=== PATIENT | male | born 1935 | race Caucasian/White ===

== ENCOUNTER 2016-09-26 05:55 | Inpatient (IN) | payer MEDICARE, OTHER ==
[2016-09-26 06:25] LABS: INR 2.52; PROTHROMBIN TIME 27.8 SECONDS (9.3-11.4)
[2016-09-26 06:28] LABS: BASO # 0.1 K/mm3 (0.0-0.2); BASO % 1.7 % (0.2-1.0); EOS # 0.4 (0.0-0.5); EOS % 5.9 % (0.9-2.9); HEMOGLOBIN 12.7 gm/l (14.0-18.0); IMM NEUT # 0.1 K/mm3 (0-0.2); IMM NEUT% 0.8 % (0-1); LYMPH % 32.8 % (15-45); MEAN CELL VOLUME 93.2 fl (80.0-94.0); MEAN CORPUSCULAR HEMOGLOBIN 29.6 pg (27.0-31.0); MEAN CORPUSCULAR HGB CONC 31.8 g/dl (33.0-37.0); MEAN PLATELET VOLUME 10.3 fl (7.4-10.4); MONO # 0.5 (0.0-0.8); MONO % 8.9 % (4-12); NEUT % 49.9 % (43-75); PLATELET COUNT 184 K/mm3 (130-400); RED CELL DISTRIBUTION WIDTH 14.2 % (11.5-14.5)
[2016-09-26 06:30] LABS: ALB/GLOB RATIO 1.2 (>1.0); ALBUMIN 3.5 gm/dL (3.5-5.7)
--- NOTE | 2016-09-26 07:38 | CT ---
HEAD W/O CON, C-SPINE W/O CON: 09/26/2016 6:28 AM CLINICAL HISTORY: Fall this morning. Patient is on Coumadin. Initial encounter. COMPARISON: None. TECHNIQUE: Contiguous axial 5 mm images from skull base to the vertex were obtained without IV contrast. Sagittal and coronal reformations with bone algorithm images were also obtained at this time. CT DI:: 51.7 DLP: 980.3 FINDINGS: Infarct: None Extra axial spaces: Normal in size and morphology for the patient's age. Hemorrhage: None. Ventricular system: Normal in size and morphology for the patient's age. Basal cisterns: Normal. Cerebral parenchyma: Small vessel occlusive changes are noted in the periventricular white matter. Basal ganglia calcifications are noted on right. Midline shift: None. Cerebellum: Normal. Brainstem: Normal. OTHER: Calvarium: Normal. Vascular system: Normal. Visualized Paranasal sinuses and Mastoid air cells: Chronic sinusitis changes are noted within the left maxillary sinus.. Visualized Orbits and regional soft tissues: Normal. IMPRESSION: No acute intracranial process. Sinus disease as above. Small vessel occlusive change. Indications: Patient fell. Initial encounter. Comparisons: None Technique: Contiguous axial 2 mm images of the cervical spine are obtained without IV contrast. Sagittal and coronal reformations are also obtained at this time. CT DI: 10.0 DLP: 187.1 Findings: Alignment: Normal Prevertebral Soft Tissue Swelling: None Bones: No fracture or dislocation Degenerative Changes: Multilevel facet disease is present. Moderate loss of the intervertebral disc height is also noted at multiple levels. Uncovertebral joint disease is also present. Regional Soft tissues and Lung Apices: Normal Impression: Degenerative changes without fracture or dislocation. Preliminary report was provided by [employer] at approximately 0720 hours on 09/26/2016.
--- NOTE | 2016-09-26 07:44 | RAD ---
09/26/2016 7:34 AM CHEST - 1 VIEW History: Patient fell. Initial encounter. Comparison: None Findings: Single AP view of the chest is obtained. The lungs are clear with out effusion or pneumothorax. The cardiomediastinal silhouette enlarged. The osseous structures are intact.. IMPRESSION: Cardiomegaly without acute process. Correlation with any outside imaging would be helpful to determine the stability of the cardiomegaly.
--- NOTE | 2016-09-26 07:46 | RAD ---
HISTORY: Patient fell. Initial encounter. COMPARISONS: None FINDINGS: AP pelvis with AP and crosstable lateral views of the right hip are obtained. Bones: Simple transverse intertrochanteric fracture is present with minimal displacement. Severe diffuse osteopenia limits assessment. No other definite fracture or dislocation. Joints:Joint spaces are well-preserved. Soft tissue: Multiple fluids are noted in the pelvis. Other: Nonspecific bowel gas pattern overlays the osseous structures.. IMPRESSION: Right hip intertrochanteric fracture.
[2016-09-26] MEDS ORDERED: ONDANSETRON 4 MG/2ML 2 ML VIAL ONE (08:13)
[2016-09-26] MEDS ORDERED: HYDROMORPHONE HCL 1 MG/ML SYRINGE ONE (08:13)
[2016-09-26 08:20] LABS: SPECIFIC GRAVITY 1.015 (1.001-1.030); URINE BILIRUBIN NEGATIVE (NEGATIVE); URINE BLOOD NEGATIVE (NEGATIVE); URINE GLUCOSE (UA) NEGATIVE (NEGATIVE); URINE LEUKOCYTE ESTERASE NEGATIVE (NEGATIVE); URINE NITRITE NEGATIVE (NEGATIVE); URINE PROTEIN NEGATIVE (NEGATIVE); URINE UROBILINOGEN NORMAL (0-1 mg/dl)
[2016-09-26 08:24] LABS: URINE APPEARANCE CLEAR; URINE COLOR YELLOW
[2016-09-26 09:20] VITALS: BMI 27.1
[2016-09-26] MEDS ORDERED: BISACODYL 5 MG TABLET.EC PO PRN (10:29)
[2016-09-26] MEDS ORDERED: BLISTEX LIPSTICK 1 EACH TP PRN (10:29)
[2016-09-26] MEDS ORDERED: MENTHOL/CETYLPYRD 1 EACH LOZENGE PO PRN (10:29)
[2016-09-26] MEDS ORDERED: BISACODYL 10 MG SUP PR PRN (10:29)
[2016-09-26] MEDS ORDERED: MAGNESIUM HYDROXIDE 30 ML UDCUP PO PRN (10:29)
[2016-09-26] MEDS ORDERED: SODIUM CHLORIDE 0.9% 100 ML IV PRN (10:29)
[2016-09-26] MEDS ORDERED: ONDANSETRON 4 MG/2ML 2 ML VIAL IV PRN (10:33)
[2016-09-26] MEDS ORDERED: SUCROSE PO ONE ×2 (10:33)
[2016-09-26] MEDS ORDERED: PHYTONADIONE ADULT PO ONE ×2 (10:33)
--- NOTE | 2016-09-26 14:01 | HP ---
SPUURJAKOB [id number] ADMIT DATE: 09/26/2016 CHIEF COMPLAINT: Hip fracture. HISTORY OF PRESENT ILLNESS: Jakob is an 81-year-old male with underlying atrial fibrillation on Coumadin as well as Lewy body dementia. He was at home this morning, and got up to go to the bathroom around 4:45 a.m.. He slipped on the floor and fell. He did not hit his head, did not lose consciousness. He had immediate pain in the hip. His was there and found him, and called 911. Brought to the emergency room and found to have a right sided intratrochanteric hip fracture. Otherwise, had no other injuries. He was admitted to the Hospitalist service to facilitate medical clearance, and to facilitate orthopedic consult. REVIEW OF SYSTEMS: HEENT: No headache, no visual symptoms and no difficulty swallowing. Pulmonary: No shortness of breath. Cardiac: No chest pain. No heart palpitations. Gastrointestinal: No nausea, vomiting or diarrhea. No change in bowel, or bladder habits. Extremities: No lower extremity weakness, numbness, tingling, or swelling. PAST MEDICAL HISTORY: 1. Atrial fibrillation on Coumadin. 2. Hypothyroidism. 3. Lewy body dementia mild as per his . 4. History of migraine headaches. 5. Macular degeneration. PAST SURGICAL HISTORY: Hemorrhoid surgery in the distant past. ALLERGIES: CODEINE. CURRENT MEDICATIONS: 1. Calcium carbonate 650 by mouth three times a day. 2. Dorzolamide eye drops twice a day. 3. Xalatan eye drops every p.m. 4. Vitamin B2 at 1000 units by mouth every day. 5. Quetiapine 12.5 mg by mouth every p.m. 6. Levothyroxine 175 mcg by mouth every morning. 7. Coumadin as directed. 8. Refresh eye drops as needed. 9. Sumatriptan as needed. SOCIAL HISTORY: He lives in [place] with his . He has a son and [id number] who live nearby in [place]. He is retired from the insurance industry. No alcohol, tobacco, or drug use. FAMILY HISTORY: Noncontributory. PHYSICAL EXAMINATION: VITAL SIGNS: Temperature is 97.4. Pulse is 84. Blood pressure is 92/65. Respirations is 20. O2 sat is 95% on room air. GENERAL: This is a well-developed and well-nourished adult male. He is alert, and pleasant. Very talkative. No acute distress. HEENT: Normocephalic, atraumatic. Tympanic membranes are clear. Extraocular muscles intact. Oropharynx is moist. NECK: Supple. LUNGS: Clear. HEART: Irregular, but no murmurs. ABDOMEN: Soft. EXTREMITIES: He is neurovascularly intact with no edema. Right lower extremity is externally rotated and shortened. LABS: CBC with a white count of 6, hemoglobin 12.7, hematocrit 40, and platelets of 184. Chemistry panel: Sodium 138, potassium 3.9, chloride 105, carbon dioxide 28, BUN of 22, creatinine 1.1, and glucose of 115. INR is therapeutic at 2.52. Urinalysis is clear. DIAGNOSTIC IMAGING: Electrocardiogram shows atrial fibrillation. No acute ST or T-wave abnormalities. Head and neck CT performed in the emergency room with no acute findings. Chest x-ray shows cardiomegaly, but no other evidence of congestive heart failure. ASSESSMENT: 1. Right intratrochanteric hip fracture secondary to a ground level fall. 2. Atrial fibrillation at baseline, appears to be chronic. 3. Anticoagulation with Coumadin with therapeutic INR. 4. Hypothyroidism, stable. 5. Lewy body dementia, appears to be at baseline. PLAN: Admitted to floor. We will treat him supportively here today. We will reverse his Coumadin using vitamin K. I anticipate we will be able to get him reversed, and possibly cleared for surgery by tomorrow. We will continue his other regular medications. Supportive care otherwise with as needed medication for pain and nausea. Deep venous thrombosis prophylaxis is not indicated as the patient is therapeutic on Coumadin. TRINO/allen Cc: GUY
[2016-09-26] MEDS: HYDROMORPHONE HCL 1 MG/ML SYRINGE IV PRN ×4 (14:07→23:30)
[2016-09-26] MEDS: LATANOPROST 0.005% 50 GTTS/2.5 ML BOT SOLN.DROP OU SCH (19:44)
[2016-09-26] MEDS: ACETAMINOPHEN 325 MG TABLET PO PRN (19:45)
[2016-09-26] MEDS: QUETIAPINE FUMARATE 25 MG TABLET PO SCH (19:45)
[2016-09-26] MEDS: DORZOLAMIDE 2% 200 GTTS/10 ML BOT SOLN.DROP OU SCH (20:41)
[2016-09-26] MEDS: DOCUSATE SODIUM 100 MG CAPSULE PO SCH (20:43)
[2016-09-26] MEDS ORDERED: PUMP TUBING ONE (22:42)
[2016-09-26] MEDS: SODIUM CHLORIDE 0.9% 1,000 ML IV SCH (22:48)
[2016-09-27] MEDS: HYDROMORPHONE HCL 1 MG/ML SYRINGE IV PRN (05:26)
[2016-09-27 05:51] LABS: ABSOLUTE NEUTROPHIL COUNT 5.4 K/mm3 (1.8-7.7); BASO # 0.1 K/mm3 (0.0-0.2); BASO % 0.6 % (0.2-1.0); EOS # 0.1 (0.0-0.5); EOS % 0.6 % (0.9-2.9); HEMATOCRIT 33.8 % (32.0-52.0); HEMOGLOBIN 11.1 gm/l (14.0-18.0); IMM NEUT% 0.2 % (0-1); LYMPH # 1.5 (1.0-4.8); LYMPH % 17.6 % (15-45); MEAN CELL VOLUME 93.9 fl (80.0-94.0); MEAN CORPUSCULAR HEMOGLOBIN 30.8 pg (27.0-31.0); MEAN CORPUSCULAR HGB CONC 32.8 g/dl (33.0-37.0); MEAN PLATELET VOLUME 10.3 fl (7.4-10.4); MONO # 1.3 (0.0-0.8); MONO % 15.8 % (4-12); NEUT % 65.2 % (43-75); PLATELET COUNT 122 K/mm3 (130-400); RED CELL DISTRIBUTION WIDTH 14.2 % (11.5-14.5)
[2016-09-27 05:56] LABS: INR 1.4
[2016-09-27 06:05] LABS: CALCIUM 8.5 mg/dL (8.6-10.3)
[2016-09-27] MEDS: SODIUM CHLORIDE 0.9% 1,000 ML IV SCH ×3 (06:40→22:01)
--- NOTE | 2016-09-27 07:24 | PDOC43 ---
- Subjective Subjective: Reports Pain Tolerable, Denies Chest Pain, Denies Shortness of Breath, Denies Nausea, Denies Vomiting - Objective Vital Signs Temperature 98.3 F 09/27/16 02:39 Pulse Rate 95 09/27/16 02:39 Respiratory Rate 16 09/27/16 02:39 Blood Pressure 100/49 09/27/16 02:39 O2 Saturation by Pulse Oximetry 94 09/27/16 02:39 Oxygen Delivery Method Room Air Oxygen Flow Rate 0 Laboratory 09/27/16 05:15 09/27/16 05:15 09/27/16 05:15 RBC 3.60 L MCHC 32.8 L PT 15.0 H Estimated GFR 58 L Calcium 8.5 L Active Medication Orders Category Date Time Status Acetaminophen [Tylenol] Med 09/26/16 10:29 Active 650 mg PO Q6H PRN Bisacodyl [Dulcolax] Med 09/26/16 10:29 Active 10 mg SC DAILY PRN Bisacodyl [Dulcolax] Med 09/26/16 10:29 Active 5 mg PO DAILY PRN Docusate Sodium [Colace] Med 09/26/16 21:00 Active 100 mg PO BID Dorzolamide 2% [Trusopt 2% Ophth Soln] Med 09/26/16 21:00 Active 0 gtts OU BID Hydromorphone HCl [Dilaudid] Med 09/26/16 10:33 Active 1 - 2 mg IV Q2H PRN Latanoprost 0.005% [Xalatan] Med 09/26/16 20:00 Active 0 gtts OU QPM Levothyroxine Sodium [Levothroid] Med 09/27/16 07:30 Active 175 mcg PO QAMAC Lip [place] [Blistex] Med 09/26/16 10:29 Active 1 each TP PRN PRN Magnesium Hydroxide [Milk of Magnesia] Med 09/26/16 10:29 Active 30 ml PO DAILY PRN Menthol/Cetylpyridinium [Cepacol] Med 09/26/16 10:29 Active 1 each PO PRN PRN Ondansetron 4 mg/2ml Vial [Zofran] Med 09/26/16 10:33 Active 4 mg IV Q3H PRN Quetiapine Fumarate [Seroquel] Med 09/26/16 20:00 Active 12.5 mg PO QPM Sodium Chloride 0.9% 1,000 ml Med 09/26/16 22:30 Active IV 125 mls/hr Sodium Chloride 0.9% 100 ml Med 09/26/16 10:29 Active IV PRN Sodium Chloride 0.9% Flush [Normal Saline 10ml Flush] Med 09/26/16 10:29 Active 10 - 50 ml IV PRN PRN Intake and Output 09/26/16 09/27/16 09/28/16 06:59 06:59 06:59 Intake Total 1135 Output Total 1025 Balance 110 General: Afebrile, No Acute Distress Neurological: Grossly Intact Psych/Mental Status: Normal Affect, Normal Mood Peripheral Pulses: Right Posterior Tibialis: 3+/4+, Right Dorsalis Pedis: 3+/4+ - Right Lower Extremity Motor: Extensor Hallucis Longus: 5/5, Tibialis Anterior: 5/5 Gross Sensation to Light Touch: Present: Medial Plantar Nerve, Lateral Plantar Nerve, Sural Nerve, Saphenous Nerve Capillary Refill: < 3 Seconds - Disposition INR 1.4; spoke with Dr. Buckner and have asked him to take over pt.'s care. Dr. Olmedo feels patient is ready for surgery. Spoke with patient's ; she is aware of transfer of care to Dr. Buckner.
[2016-09-27] MEDS: DOCUSATE SODIUM 100 MG CAPSULE PO SCH (08:37)
[2016-09-27] MEDS: LEVOTHYROXINE SODIUM 175 MCG TABLET PO SCH (08:37)
--- NOTE | 2016-09-27 08:56 | CONS ---
JAKOB CHAPIN [id number] DATE OF CONSULTATION: September 26, 2016 HISTORY OF PRESENT ILLNESS: Jakob Chapin is an 81-year-old male who was seen at the request of the emergency department physician, Dr. Marsh, for evaluation of a right intertrochanteric hip fracture. Patient was examined with his permission in his bed in the presence of his and [id number]. The imaging studies and medical records are reviewed. HISTORY OF INJURY: Patient states that he got up this morning to go to the bathroom. He slipped on the bathroom floor at home and fell to the ground. He was unable to arise. He felt that he was certain he had broken his hip. His contacted paramedics, and he was then transported to [facility] where he was evaluated in the emergency department by Dr. Marsh who obtained x-rays, diagnosed an intertrochanteric fracture of the right hip and subsequently contacted me for orthopedic consultation. He also contacted the hospitalist service for admission and evaluation. He is interviewed in his room. He is experiencing right hip pain. He is alert. He states he is somewhat forgetful and is hard of hearing. History is obtained from the patient and from his . PAST MEDICAL HISTORY: 1. Cardiac arrhythmia. 2. Atrial fibrillation. 3. Hypothyroidism. 4. Hypertension. 5. Glaucoma. PAST SURGICAL HISTORY: He denies any prior surgeries. ALLERGIES: HE HAD NO KNOWN DRUG ALLERGIES. MEDICATIONS: He is taking multiple medications. 1. He is taking Timoptic for his glaucoma. 2. He is also taking Synthroid. 3. He is on Coumadin for his atrial fibrillation. 4. He is on some other medications whose names he does not recall. SOCIAL HISTORY: He does not smoke. He drinks alcohol very rarely. He is a retired insurance operations rep. PHYSICAL EXAM: GENERAL: Physical examination reveals a well-nourished, well-developed male who is cooperative with the examination. VITAL SIGNS: Patient gives a stated height of about 5 feet 7.5 inches tall and weighs 170 pounds. EXTREMITIES: Focused examination of the right lower extremity is carried out. Inspection of the lower extremities indicates shortening and external rotation of the right leg. The neurovascular status is intact. He has good peripheral pulses and posterior tibialis and dorsalis pedis. He has good capillary refill and good sensation. There is exquisite right hip pain upon movement of the right lower extremity. IMAGING STUDIES: X-rays obtained while the patient was in the emergency department of the right hip and pelvis indicated the presence of an intertrochanteric fracture of the right hip. DIAGNOSTIC IMPRESSION: 1. Intertrochanteric fracture right hip. 2. Atrial fibrillation. 3. Hypothyroidism. 4. Glaucoma. PLAN: Patient is a candidate for surgical treatment. Surgery itself has been explained to the patient and to his family in detail along with expected benefits, potential risks and complications and alternative method of treatment. PARQ conference was held. Patient and family appear to understand. They request that we proceed with the surgery. Patient will be evaluated by Dr. Olmeod, hospitalist, for preoperative consultation. Dr. Olmedo has spoken with us. He feels that the patient has elevated INR of 2.4 and will begin the process of reversing it with vitamin K. He feels the patient should be a candidate for surgical treatment by tomorrow. He is recommending surgery today. We have conferred with the patient's family. They are comfortable with this decision. In the meantime, patient will be maintained at bedrest with pain medication and we will place compression stockings on his legs while he is at bedrest.
[2016-09-27] MEDS ORDERED: LATANOPROST 0.005% 50 GTTS/2.5 ML BOT SOLN.DROP OU SCH (10:30)
[2016-09-27] MEDS: DORZOLAMIDE 2% 200 GTTS/10 ML BOT SOLN.DROP OU SCH (10:33)
--- NOTE | 2016-09-27 11:18 | PDOC43 ---
- Subjective Chief Complaint: Hip fx Patient resting, awakens normally. At ease, no complaints, just some soreness at R hip. No respiratory, no GI c/o. - Objective Vital Signs Temperature 98.4 F 09/27/16 09:27 Pulse Rate 123 09/27/16 09:27 Respiratory Rate 13 09/27/16 09:27 Blood Pressure 114/57 09/27/16 09:27 O2 Saturation by Pulse Oximetry 93 09/27/16 09:27 Oxygen Delivery Method Room Air Oxygen Flow Rate 0 Vital Signs Last 12 Hours Temp Pulse Resp BP Pulse Ox 09/27/16 09:27 98.4 F 123 13 114/57 93 09/27/16 09:08 13 09/27/16 02:39 98.3 F 95 16 100/49 94 Intake and Output 09/25/16 09/26/16 09/27/16 23:59 23:59 23:59 Intake Total 120 1015 Output Total 850 175 Balance -730 840 General: Alert, No Oriented x3 (Guesses September or October for date, but not able to give more detail, like a year.), No Acute Distress HEENT: Atraumatic Lungs: Normal Air Movement Cardiovascular: Irregular (sl rapid) Abdomen: Soft, Normal Bowel Sounds, Non-Distended, No Tenderness, No Rebounding Extremities: Other (R LE externally rotated, shortened, c/w hip fx. Perfusion appears good. ICDs on) Skin: Normal Color Neurological: Normal Speech Psych/Mental Status: Normal Affect, Normal Mood Laboratory 09/27/16 05:15 09/27/16 05:15 09/27/16 05:15 RBC 3.60 L MCHC 32.8 L PT 15.0 H Estimated GFR 58 L Calcium 8.5 L Laboratory Tests 09/26/16 09/27/16 06:02 05:15 INR 2.52 1.40 Current Medications: Current meds reviewed in EMR. Active Medications Acetaminophen (Tylenol) 650 mg PO Q6H PRN PRN Reason: Pain or Temperature > 100.5 F Last Admin: 09/26/16 19:45 Dose: 650 mg Benzocaine/Menthol (Cepacol) 1 each PO PRN PRN PRN Reason: Sore Throat Last Admin: 09/26/16 19:45 Dose: 1 each Bisacodyl (Dulcolax) 10 mg PA DAILY PRN PRN Reason: Constipation Bisacodyl (Dulcolax) 5 mg PO DAILY PRN PRN Reason: Constipation Docusate Sodium (Colace) 100 mg PO BID [facility] Last Admin: 09/27/16 08:37 Dose: Not Given Dorzolamide HCl (Trusopt 2% Ophth Soln) 0 gtts OU BID [facility] Last Admin: 09/27/16 10:33 Dose: 1 gtts Hydromorphone HCl (Dilaudid) 1 - 2 mg IV Q2H PRN PRN Reason: Pain Last Admin: 09/27/16 05:26 Dose: 1 mg Sodium Chloride (Sodium Chloride 0.9%) 100 mls @ 25 mls/hr IV PRN PRN PRN Reason: Flush Sodium Chloride (Sodium Chloride 0.9%) 1,000 mls @ 125 mls/hr IV .Q8H [facility] Last Admin: 09/27/16 06:40 Dose: 125 mls/hr Latanoprost (Xalatan) 0 gtts OU QPM [facility] Last Admin: 09/26/16 19:44 Dose: 1 gtts Levothyroxine Sodium (Levothroid) 175 mcg PO QAMAC [facility] Last Admin: 09/27/16 08:37 Dose: Not Given Magnesium Hydroxide (Milk Of Magnesia) 30 ml PO DAILY PRN PRN Reason: Constipation Ondansetron HCl (Zofran) 4 mg IV Q3H PRN PRN Reason: Nausea/Vomiting Petrolatum/Paraffin/Mineral Oil (Blistex) 1 each TP PRN PRN PRN Reason: Dry and/or chapped lips Last Admin: 09/26/16 19:44 Dose: 1 applic Quetiapine Fumarate (Seroquel) 12.5 mg PO QPM [facility] Last Admin: 09/26/16 19:45 Dose: 12.5 mg Sodium Chloride (Normal Saline 10ml Flush) 10 - 50 ml IV PRN PRN PRN Reason: IV Flush Last Admin: 09/27/16 06:14 Dose: 10 ml Sodium Chloride (Normal Saline 10ml Flush) 10 ml IV Q8HR [facility] Last Admin: 09/27/16 09:04 Dose: Not Given - Problems: Assessment/Plan (1) Hip fracture Qualifiers: Encounter type: initial encounter Fracture type: closed Laterality : right Qualifier Code: (S72.001A) Fracture of unspecified part of neck of right femur, initial encounter for closed fracture Status: AcuteAssessment/ Plan: Anticipate surgical repair today. (2) Atrial fibrillation Qualifiers: Atrial fibrillation type: chronic Qualifier Code: (I48.2) Chronic atrial fibrillation Status: ChronicAssessment/Plan: INR <1.5 now after Vit K. Had been on warfarin. HR up some, due to atrial fib. Not normally on rate limiting drug, but would consider metoprolol if HR continues high. Pt appears to be tolerating tachycardia due to chronic atrial fib without difficulty. (3) Lewy body dementia Qualifiers: Dementia behavioral disturbance: without behavioral disturbance Qualifier Code: (G31.83) Dementia with Lewy bodies Status: AcuteAssessment/ Plan: Has Seroquel ordered. appears to be tolerating well. VTE Prophylaxis: Mechanical in anticipation of surgical repair Disposition: To be determined, will see about activity tolerance postop, appreciate therapy input.
[2016-09-27] MEDS ORDERED: KETAMINE HCL UD SYRINGE 100 MG/2 ML IV ONE (15:21)
[2016-09-27] MEDS ORDERED: MIDAZOLAM HCL 1 MG/ML 2ML VIAL ONE (15:21)
[2016-09-27] MEDS ORDERED: SPINAL PROCEDURAL TRAY 1 EACH ONE (15:32)
[2016-09-27] MEDS ORDERED: BUPIVACAINE 0.5% (PRES FREE) 30 ML VIAL ONE (15:32)
[2016-09-27] MEDS ORDERED: FENTANYL 100 MCG/2 ML VIAL ONE (16:15)
[2016-09-27] MEDS ORDERED: CEFAZOLIN SODIUM 1,000 MG VIAL ONE (16:39)
[2016-09-27] MEDS ORDERED: PHENYLEPHRINE 10 MG/1 ML (1%) VIAL ONE (16:39)
[2016-09-27] MEDS ORDERED: HYDROMORPHONE HCL 1 MG/ML SYRINGE IV PRN (16:44)
[2016-09-27] MEDS ORDERED: NALOXONE HCL 0.4 MG/ML VIAL IV PRN (16:44)
[2016-09-27] MEDS ORDERED: ONDANSETRON 4 MG/2ML 2 ML VIAL IV PRN (16:44)
[2016-09-27] MEDS ORDERED: ATROPINE SULFATE 0.4 MG/1 ML VIAL IV PRN (16:44)
[2016-09-27] MEDS ORDERED: FENTANYL 100 MCG/2 ML VIAL IV PRN (16:44)
[2016-09-27] MEDS ORDERED: LACTATED RINGERS 1,000 ML IV SCH (16:45)
[2016-09-27] MEDS ORDERED: LIDOCAINE 2% (PRES FREE) 5 ML VIAL ONE (16:51)
[2016-09-27] MEDS ORDERED: PROPOFOL 40 ML IV ONE (16:51)
--- NOTE | 2016-09-27 17:29 | PCMBPN ---
Brief Post Op Note: Date of Procedure: 09/27/16 Start Time: 1600 Preoperative Diagnosis: 1. right intertrochanteric hip fracture Postoperative Diagnosis: 1. Same Procedure: right hip ORIF Surgeon: Manuel Buckner MD Assist: Christy Castillo Anesthesia: Miguelito Bolden Findings: as above Condition: stable to PACU Complications: none IV Fluids: 1500 mLs of LR Urine Output: 150 mLs Estimated Blood Loss: 150 mLs Tourniquet Time: none Specimens: none Implants: 135 deg AO screw/sideplate, 120 mm screw, 4 shaft screws Drains: none Manuel Buckner MD
--- NOTE | 2016-09-27 18:38 | RAD ---
Name: ANTONIO HAY Exam: Pelvis Comparison: None Clinical history: Follow-up fracture Findings: Low AP pelvis is submitted. Bone density is diminished. Intertrochanteric fracture of the right hip is secured by lateral compression plate and sliding screw. Fracture fragments are in anatomic alignment. Straight catheter is noted in the pelvis. Superior hip joint spaces are maintained. Impression: Normal postoperative single view appearance of ORIF of the proximal right femoral fracture
[2016-09-27] MEDS ORDERED: SODIUM CHLORIDE 0.9% 500 ML IV SCH (19:30)
--- NOTE | 2016-09-27 19:42 | RAD ---
Name: ANTONIO HAY Exam: C-arm fluoroscopy Comparison: Prereduction films dated 10-11 Clinical history: Proximal right femoral fracture Findings: 58.4 seconds of fluoroscopy was utilized for the procedure. 3 C-arm spot images are submitted. The intertrochanteric fracture of the right hip is secured by lateral compression plate and sliding screw. Fracture fragment alignment is normal. There is no new suspicious finding. Impression: Normal intraoperative appearance of ORIF of a proximal right femoral intertrochanteric fracture
[2016-09-27] MEDS: ACETAMINOPHEN 325 MG TABLET PO PRN (19:52)
[2016-09-27] MEDS ORDERED: METOPROLOL TARTRATE 25 MG TABLET PO ONE (20:13)
[2016-09-27] MEDS: QUETIAPINE FUMARATE 25 MG TABLET PO SCH (20:23)
[2016-09-28] MEDS: DOCUSATE SODIUM 100 MG CAPSULE PO SCH ×3 (01:59→20:02)
[2016-09-28] MEDS: METOPROLOL TARTRATE 25 MG TABLET PO SCH ×3 (01:59→20:38)
[2016-09-28] MEDS: DORZOLAMIDE 2% 200 GTTS/10 ML BOT SOLN.DROP OU SCH ×4 (01:59→20:08)
[2016-09-28] MEDS: LATANOPROST 0.005% 50 GTTS/2.5 ML BOT SOLN.DROP OU SCH ×3 (01:59→20:08)
[2016-09-28] MEDS: CEFAZOLIN SODIUM 1 GRAM PREMIX 1 G in Premix (D5W) 50 ml 1 EACH IV SCH ×2 (02:04→07:53)
[2016-09-28] MEDS: HYDROMORPHONE HCL 1 MG/ML SYRINGE IV PRN ×2 (02:23→22:22)
[2016-09-28] MEDS ORDERED: SODIUM CHLORIDE 0.9% 500 ML IV SCH ×2 (03:48→14:00)
[2016-09-28] MEDS: LEVOTHYROXINE SODIUM 175 MCG TABLET PO SCH (07:53)
[2016-09-28] MEDS: ACETAMINOPHEN 325 MG TABLET PO PRN (09:06)
[2016-09-28] MEDS ORDERED: SODIUM CHLORIDE 0.9% FLUSH 10 ML ONE (12:16)
[2016-09-28] MEDS ORDERED: IV START KIT ONE (12:17)
[2016-09-28] MEDS: SODIUM CHLORIDE 0.9% 1,000 ML IV SCH ×3 (13:46→20:02)
[2016-09-28] MEDS ORDERED: WARFARIN PER PHARMACY 1 EACH DOSE PO SCH (14:00)
--- NOTE | 2016-09-28 14:06 | PDOC43 ---
- Subjective Chief Complaint: Rt. Hip fx Subjective: Reports Pain Tolerable, Denies Shortness of Breath, Denies Chest Pain, Denies Fever - Objective Vital Signs Temperature 98.2 F 09/28/16 07:20 Pulse Rate 107 09/28/16 11:51 Respiratory Rate 20 09/28/16 11:51 Blood Pressure 83/53 09/28/16 11:51 O2 Saturation by Pulse Oximetry 98 09/28/16 11:51 Oxygen Delivery Method Room Air Oxygen Flow Rate 0 Intake and Output 09/27/16 09/28/16 09/29/16 06:59 06:59 06:59 Intake Total 1135 2869 2271 Output Total 1025 1275 Balance 110 1594 2271 General: Alert, Cooperative, No Acute Distress HEENT: Mucous membr. moist/pink Lungs: Clear to Auscultation Bilaterally Cardiovascular: Regular Rate and Rhythm Abdomen: Soft, Normal Bowel Sounds, Non-Distended, No Tenderness Extremities: Normal Pulses, No Edema Peripheral Pulses: Dorsalis Pedis (L): 2+, Dorsalis Pedis (R): 2+ Skin: Warm, Dry, Intact Wound: Dressing Clean/Dry/Intact Laboratory 09/27/16 05:15 09/27/16 05:15 Current Medications: Current meds reviewed in EMR. - Problems: Assessment/Plan (1) Hip fracture Qualifiers: Encounter type: initial encounter Fracture type: closed Laterality : right Qualifier Code: (S72.001A) Fracture of unspecified part of neck of right femur, initial encounter for closed fracture Status: AcuteAssessment/ Plan: S/P ORIF of right hip performed on 09/27- [facility] (2) Lewy body dementia Qualifiers: Dementia behavioral disturbance: without behavioral disturbance Qualifier Code: (G31.83) Dementia with Lewy bodies Status: AcuteAssessment/ Plan: Has Seroquel ordered. appears to be tolerating well. (3) Atrial fibrillation Qualifiers: Atrial fibrillation type: chronic Qualifier Code: (I48.2) Chronic atrial fibrillation Status: ChronicAssessment/Plan: INR <1.5 now after Vit K. Had been on warfarin. HR up some, due to atrial fib. Not normally on rate limiting drug, but would consider metoprolol if HR continues high. BP is low with increased heart rate today but per spouse he runs low at baseline. Pt appears to be tolerating tachycardia due to chronic atrial fib without difficulty. ECHO performed on 09/28 shows biatrial enlargement but normal LVEF- Will resume coumadin today and give fluid bolus VTE Prophylaxis: Mechanical prophylaxis and restarting coumadin on 09/28 Disposition: To be determined, will see about activity tolorance postop, appreciate therapy input.
[2016-09-28] MEDS ORDERED: WARFARIN SODIUM 5 MG TABLET PO ONE (16:00)
--- NOTE | 2016-09-28 17:51 | PDOC43 ---
- Subjective Findings: Resting comfortably this AM, per was fairly agitated most of the night. No new issues. Subjective: Reports Pain Tolerable - Objective Vital Signs Temperature 98.2 F 09/28/16 07:20 Pulse Rate 112 09/28/16 15:46 Respiratory Rate 18 09/28/16 15:46 Blood Pressure 124/65 09/28/16 15:46 O2 Saturation by Pulse Oximetry 92 09/28/16 15:46 Oxygen Delivery Method Room Air Oxygen Flow Rate 0 Laboratory 09/27/16 05:15 09/27/16 05:15 Active Medication Orders Category Date Time Status Acetaminophen [Tylenol] Med 09/26/16 10:29 Active 650 mg PO Q6H PRN Bisacodyl [Dulcolax] Med 09/26/16 10:29 Active 10 mg [place] DAILY PRN Bisacodyl [Dulcolax] Med 09/26/16 10:29 Active 5 mg PO DAILY PRN Docusate Sodium [Colace] Med 09/26/16 21:00 Active 100 mg PO BID Dorzolamide 2% [Trusopt 2% Ophth Soln] Med 09/26/16 21:00 Active 0 gtts OU BID Hydromorphone HCl [Dilaudid] Med 09/26/16 10:33 Active 1 - 2 mg IV Q2H PRN Latanoprost 0.005% [Xalatan] Med 09/26/16 20:00 Active 0 gtts OU QPM Levothyroxine Sodium [Levothroid] Med 09/27/16 07:30 Active 175 mcg PO QAMAC Lip [place] [Blistex] Med 09/26/16 10:29 Active 1 each TP PRN PRN Magnesium Hydroxide [Milk of Magnesia] Med 09/26/16 10:29 Active 30 ml PO DAILY PRN Menthol/Cetylpyridinium [Cepacol] Med 09/26/16 10:29 Active 1 each PO PRN PRN Metoprolol Tartrate [Lopressor] Med 09/27/16 21:00 Active 12.5 mg PO BID Ondansetron 4 mg/2ml Vial [Zofran] Med 09/26/16 10:33 Active 4 mg IV Q3H PRN Quetiapine Fumarate [Seroquel] Med 09/26/16 20:00 Active 12.5 mg PO QPM Sodium Chloride 0.9% 1,000 ml Med 09/26/16 22:30 Active IV 125 mls/hr Sodium Chloride 0.9% 100 ml Med 09/26/16 10:29 Active IV PRN Sodium Chloride 0.9% Flush [Normal Saline 10ml Flush] Med 09/26/16 10:29 Active 10 - 50 ml IV PRN PRN Sodium Chloride 0.9% Flush [Normal Saline 10ml Flush] Med 09/27/16 09:00 Active 10 ml IV Q8HR Warfarin Per Pharmacy [Coumadin Per Pharmacy] Med 09/28/16 14:00 Active 1 each PO PERPHARMACY Intake and Output 09/26/16 09/27/16 09/28/16 23:59 23:59 23:59 Intake Total 120 2815 4558 Output Total 850 525 925 Balance -730 2290 3633 General: Afebrile, No Acute Distress Lungs: Normal Air Movement Abdomen: Soft Skin: Normal Color, Warm, Dry - Right Lower Extremity Incision: Dressing Clean/Dry/Intact, Well Approximated, [place] Intact, No Erythema, No Rash, No Ecchymosis Capillary Refill: < 3 Seconds - Problems (1) Hip fracture Qualifiers: Encounter type: initial encounter Fracture type: closed Laterality : right Qualifier Code: (S72.001A) Fracture of unspecified part of neck of right femur, initial encounter for closed fracture Status: Acute - Disposition POD#1 R hip ORIF with sliding hip screw 1. Physical Therapy: WBAT with assistive device at all times. 2. Pain Control: Adequate on current measures, being cautions with narcotics due to hypotension 3. DVT Prophylaxis: Restart Coumadin today 4. Disposition: Likely home tomorrow, has home health in place, completed PT paperwork, 5. Medical Issues: per hospitalist. Manuel Buckner MD
[2016-09-28] MEDS: QUETIAPINE FUMARATE 25 MG TABLET PO SCH (20:02)
--- NOTE | 2016-09-28 22:42 | PDOC36 ---
Provider Note Subject: heart rate up to 140 at times despite metoprolol. Blood pressure low despite fluids and normal LVEF. - Will start digoxin
[2016-09-28] MEDS: DIGOXIN 0.25 MG/ML AMP IV SCH (23:35)
[2016-09-28] MEDS ORDERED: QUETIAPINE FUMARATE 25 MG TABLET PO ONE (23:48)
[2016-09-29] MEDS: SODIUM CHLORIDE 0.9% 1,000 ML IV SCH ×4 (01:59→23:20)
[2016-09-29] MEDS: DIGOXIN 0.25 MG/ML AMP IV SCH ×3 (05:45→16:24)
[2016-09-29 06:11] LABS: ABSOLUTE NEUTROPHIL COUNT 5.7 K/mm3 (1.8-7.7); BASO % 0.4 % (0.2-1.0); EOS # 0.1 (0.0-0.5); EOS % 1.2 % (0.9-2.9); HEMATOCRIT 24.9 % (32.0-52.0); HEMOGLOBIN 7.7 gm/l (14.0-18.0); IMM NEUT% 0.4 % (0-1); LYMPH # 0.9 (1.0-4.8); LYMPH % 11.2 % (15-45); MEAN CELL VOLUME 97.3 fl (80.0-94.0); MEAN CORPUSCULAR HEMOGLOBIN 30.1 pg (27.0-31.0); MEAN CORPUSCULAR HGB CONC 30.9 g/dl (33.0-37.0); MEAN PLATELET VOLUME 10.3 fl (7.4-10.4); MONO # 0.9 (0.0-0.8); MONO % 11.3 % (4-12); NEUT % 75.5 % (43-75); PLATELET COUNT 101 K/mm3 (130-400)
[2016-09-29 06:22] LABS: INR 1.2; PROTHROMBIN TIME 12.7 SECONDS (9.3-11.4)
[2016-09-29 06:30] LABS: CALCIUM 7.8 mg/dL (8.6-10.3)
[2016-09-29] MEDS: LEVOTHYROXINE SODIUM 175 MCG TABLET PO SCH (07:38)
[2016-09-29] MEDS: DOCUSATE SODIUM 100 MG CAPSULE PO SCH ×2 (08:56→20:23)
[2016-09-29] MEDS: ACETAMINOPHEN 325 MG TABLET PO PRN ×2 (08:56→15:58)
[2016-09-29] MEDS: DORZOLAMIDE 2% 200 GTTS/10 ML BOT SOLN.DROP OU SCH ×2 (08:57→20:23)
[2016-09-29] MEDS ORDERED: SODIUM CHLORIDE 0.9% 500 ML IV PRN (11:30)
[2016-09-29] MEDS ORDERED: FUROSEMIDE 20 MG/2 ML VIAL IV ONE (11:30)
--- NOTE | 2016-09-29 11:37 | PDOC43 ---
- Subjective Chief Complaint: Rt. Hip fx Some tachycardia yesterday PM- started dig. At baseline low BP. Weak, but no CP/SOB. Working well with PT/OT. Subjective: Reports Pain Tolerable, Reports Tolerating Diet Well, Denies Shortness of Breath, Denies Cough, Denies Chest Pain, Denies Abdominal Pain, Denies Nausea, Denies Vomiting, Denies Fever, Denies Chills - Objective Vital Signs Temperature 98.6 F 09/29/16 07:03 Pulse Rate 92 09/29/16 07:08 Respiratory Rate 16 09/29/16 07:03 Blood Pressure 106/69 09/29/16 07:03 O2 Saturation by Pulse Oximetry 98 09/29/16 11:01 Oxygen Delivery Method Room Air Oxygen Flow Rate 0 Intake and Output 09/28/16 09/29/16 09/30/16 06:59 06:59 06:59 Intake Total 2869 5675 Output Total 1275 1250 Balance 1594 4425 General: Alert, Oriented x3, Cooperative, Other (Weak and pale.) HEENT: Atraumatic Lungs: Clear to Auscultation Bilaterally Cardiovascular: Regular Rate and Rhythm Abdomen: Soft, Normal Bowel Sounds, Non-Distended, No Tenderness Extremities: Normal Cap Refill, Normal Pulses, No Edema, No Tenderness Wound: Dressing Clean/Dry/Intact, No Bruising Laboratory 09/29/16 05:30 09/29/16 05:30 09/29/16 05:30 INR 1.20 Current Medications: Current meds reviewed in EMR. - Problems: Assessment/Plan (1) Hip fracture Qualifiers: Encounter type: initial encounter Fracture type: closed Laterality : right Qualifier Code: (S72.001A) Fracture of unspecified part of neck of right femur, initial encounter for closed fracture Status: AcuteAssessment/ Plan: S/P ORIF of right hip performed on 09/27- [facility]. (2) Acute blood loss anemia Status: AcuteAssessment/Plan: H&H down significantly. Given tachycardia and weakness will transfuse. Follow closely. (3) Lewy body dementia Qualifiers: Dementia behavioral disturbance: without behavioral disturbance Qualifier Code: (G31.83) Dementia with Lewy bodies Status: AcuteAssessment/ Plan: Has Seroquel ordered. appears to be tolerating well. (4) Atrial fibrillation Qualifiers: Atrial fibrillation type: chronic Qualifier Code: (I48.2) Chronic atrial fibrillation Status: ChronicAssessment/Plan: INR- 1.2. Tachycardia yesterday presumed d/t blood loss anemia in context of chronic a fib. ECHO performed on 09/28 shows biatrial enlargement but normal LVEF. Transfuse as above and follow. Low BP's are baseline. VTE Prophylaxis: Mechanical prophylaxis and restarting coumadin on 09/28 Disposition: To be determined, will see about activity tolorance postop, appreciate therapy input.
[2016-09-29] MEDS ORDERED: BLOOD Y PLUMSET W/CASSETTE ONE ×2 (13:10→16:14)
[2016-09-29] MEDS ORDERED: WARFARIN SODIUM 2.5 MG TABLET PO SCH (16:00)
[2016-09-29] MEDS ORDERED: FUROSEMIDE 20 MG/2 ML VIAL ONE (16:14)
[2016-09-29] MEDS ORDERED: PUMP TUBING ONE (18:03)
[2016-09-29] MEDS ORDERED: QUETIAPINE FUMARATE 25 MG TABLET PO SCH (20:00)
[2016-09-29] MEDS: LATANOPROST 0.005% 50 GTTS/2.5 ML BOT SOLN.DROP OU SCH (20:23)
[2016-09-30] MEDS: SODIUM CHLORIDE 0.9% 1,000 ML IV SCH (06:18)
[2016-09-30 07:07] LABS: HEMATOCRIT 31.6 % (32.0-52.0); HEMOGLOBIN 10.6 gm/l (14.0-18.0); MEAN CELL VOLUME 89.3 fl (80.0-94.0); MEAN CORPUSCULAR HEMOGLOBIN 29.9 pg (27.0-31.0); MEAN CORPUSCULAR HGB CONC 33.5 g/dl (33.0-37.0); RED CELL DISTRIBUTION WIDTH 15.3 % (11.5-14.5)
[2016-09-30 07:25] LABS: ALBUMIN 2.5 gm/dL (3.5-5.7); CALCIUM 7.8 mg/dL (8.6-10.3)
[2016-09-30 07:26] LABS: INR 1.19; PROTHROMBIN TIME 12.6 SECONDS (9.3-11.4)
[2016-09-30] MEDS: LEVOTHYROXINE SODIUM 175 MCG TABLET PO SCH (07:27)
[2016-09-30] MEDS: DORZOLAMIDE 2% 200 GTTS/10 ML BOT SOLN.DROP OU SCH (09:25)
[2016-09-30] MEDS: DOCUSATE SODIUM 100 MG CAPSULE PO SCH (09:25)
[2016-09-30] MEDS: ACETAMINOPHEN 325 MG TABLET PO PRN (09:27)
[2016-09-30] MEDS ORDERED: WARFARIN SODIUM 5 MG TABLET PO ONE ×2 (10:49→16:00)
[2016-09-30 12:28] VITALS: BP 117/68
--- NOTE | 2016-09-30 12:51 | DS ---
Jakob Chapin ADMIT DATE: 09/26/2016 DISCHARGE DATE: 09/30/2016 ADMISSION DIAGNOSES: 1. Right intertrochanteric hip fracture due to ground level falls. 2. Atrial fibrillation at baseline. 3. Anticoagulation with Coumadin with a therapeutic INR. 4. Hypothyroidism at baseline. 5. Lewy body dementia at baseline. DISCHARGE DIAGNOSES: 1. Right intertrochanteric hip fracture due to ground level falls. 2. Atrial fibrillation at baseline. 3. Anticoagulation with Coumadin with a therapeutic INR. 4. Hypothyroidism at baseline. 5. Lewy body dementia at baseline. 6. Acute blood loss anemia in the postoperative period. ADMIT HISTORY AND PHYSICAL: Please see my dictated note for details. Briefly, Mr. Chapin is an 81-year-old male with underlying Lewy body dementia. On the morning of admission he woke up to go to the bathroom at 4:45 a.m., he had a mechanical fall, and suffered a right intertrochanteric hip fracture. He was brought to the emergency room. Workup was otherwise negative. He was admitted to the hospitalist service for medical clearance pending orthopedic consult. HOSPITAL COURSE: He was admitted. Orthopedics did see him and he eventually went to surgery on 09/27 and underwent an ORIF, please see orthopedic notes for further details. He did well postoperatively with the exception of developing acute blood loss anemia, this was manifested by tachycardia and weakness. He did receive a blood transfusion of 2 units on 09/29/2016 with a marked improvement in his symptoms. By day of discharge he was working well with therapy, eating and drinking well, he seemed to be at his baseline mental, and it was elected to discharge him to senior living facility for continued rehab. DISCHARGE MEDICATIONS: 1. Refresh drops to the eyes as prior to admit. 2. Calcium 650 by mouth three times daily. 3. Dorzolamide eye drops twice daily as prior to admit. 4. Vitamin D2 1000 units by mouth daily. 5. Xalatan eye drops as prior to admit. 6. Levothyroxine 175 mcg by mouth every morning. 7. Imitrex 100 mg daily as needed for migraine. 8. Coumadin 2 mg tablets, one tablet by mouth every Tuesday, Tuesday, Tuesday, Tuesday, Tuesday, and 3 mg by mouth every and Tuesday. INR check is scheduled 10/03/2016. 9. [place] 5/325 one tablet every 4 to 6 hours as needed for pain, #30, no refills. 10. Seroquel 25 mg by mouth bedtime. DISCHARGE FOLLOW UP: Will be with his primary provider, Daisy Daigle at the [facility] clinic on 10/12/2016 as scheduled. JOB: [id number] CC: Daisy Daigle at [facility]
--- NOTE | 2016-10-07 13:55 | OP ---
Jakob HAY : 1935 [id number] DATE OF SERVICE: September 27, 2016 PREOPERATIVE DIAGNOSIS: Right intertrochanteric hip fracture. POSTOPERATIVE DIAGNOSIS: Right intertrochanteric hip fracture. PROCEDURE PERFORMED: RIGHT HIP OPEN REDUCTION INTERNAL FIXATION. SURGEON: Manuel Buckner M.D. CHIEF HOSPITAL ADMINISTRATOR: Zulma Patrick ANESTHESIA: Zonia Rodriges.R.N.Amparo SPECIMENS: No material was sent to the laboratory. ESTIMATED BLOOD LOSS: 150 mL. FLUIDS REPLACED: 1500 mL of crystalloid. URINE OUTPUT: 150 mL. TOURNIQUET TIME: None. SPECIMENS: None. IMPLANTS: A 135 degree screw and side plate construct with 120 mm screw and four shaft screws. INDICATIONS: An 81-year-old gentleman seen on consult by my partner Dr. Canas for a fall with a right intertrochanteric hip fracture. He required reversal of anticoagulation and so I inherited this patient from Dr. Canas. We had a discussion with the family and they elected to pursue open reduction internal fixation where we would restore him to his baseline ambulatory status. DESCRIPTION OF PROCEDURE: The patient was identified in the pre-operative holding area where he was marked with an indelible marker by the operating surgeon. He was taken to the operating room where he was placed in supine position on the fracture table. A general anesthesia was induced, perioperative antibiotics was administered. He was put into a scissor position on the fracture table. He was prepped and draped in the usual sterile fashion for surgery. A final operative time out was performed and confirmed by all members of the operative team. Traction was applied with the fracture table through the well padded boot and images were obtained which showed reduction of the patient's intertrochanteric hip fracture. A longitudinal incision was made over the lateral side of the thigh using a vastas splitting approach to the proximal femur. A guide pin was driven up through the lateral cortex of the femur along the femoral neck, and resting the femoral head in a tip apex position of less than 2 cm. The position of the pin was confirmed on AP and lateral projections. A length was measured and then the pin was reamed over to allow for the cephalomedullary screw. A 120 mm screw was placed with appropriate position within the femoral head. The guide pin was removed and the lateral fixed angle plate was threaded over the hip screw with the locking screw placed and then four cortical screws were placed in bicortical fashion attaching the plate to the lateral cortex of the femur. Final images were obtained which showed adequate reduction of the fracture and good position of hardware. The wound was copiously irrigated with sterile saline. The lateral fascia of the thigh was closed with #0 Vicryl, subcutaneous tissues with #2-0 Vicryl and the skin with Nylon and a sterile dressing of Xeroform, fluffs, ABD and Medipore tape was applied. The drapes were removed. The patient was awakened from his anesthesia extubated in the operating room and transferred to a stretcher and taken postoperatively to the postanesthesia care unit in stable condition. There were no observed intraoperative complications during this procedure. Job [id number] Cc: [facility]
== END 2016-09-30 12:10 | DRG 481 ==
LOC: ED 05:55 → MS 08:38
PROVIDERS: ADMIT Family Medicine; ATTEND Orthopaedic Surgery
PROC: 0QS604Z Reposition Right Upper Femur with Internal Fixation Device, Open Approach (ICD-10-PCS; principal; 2016-09-27)
PROC: 30233N1 Transfusion of Nonautologous Red Blood Cells into Peripheral Vein, Percutaneous Approach (ICD-10-PCS; 2016-09-27)
DX: S72.141A Displaced intertrochanteric fracture of right femur, initial encounter for closed fracture (principal); D62 Acute posthemorrhagic anemia; W19.XXXA Unspecified fall, initial encounter; Z79.01 Long term (current) use of anticoagulants; E03.9 Hypothyroidism, unspecified; G31.83 Neurocognitive disorder with Lewy bodies; F02.80 Dementia in other diseases classified elsewhere, unspecified severity, without behavioral disturbance, psychotic disturbance, mood disturbance, and anxiety; I48.2 Chronic atrial fibrillation; H40.9 Unspecified glaucoma